=== PATIENT | female | born 2000 | race Caucasian/White ===

== ENCOUNTER → 2025-10-10 | Emergency (ER) | payer OTHER | END | disposition left against medical advice (07) | LOC: EMS 22:20 | DX: R45.6 Violent behavior (principal); Z53.21 Procedure and treatment not carried out due to patient leaving prior to being seen by health care provider ==

== ENCOUNTER 2025-10-26 09:19 | Emergency (ER) | payer OTHER ==
[~2025-10-26] VITALS: Ht 162.6 cm; Wt 100.0 kg
[2025-10-26 09:41] VITALS: BP 122/74; PULSE 96; RESP 18; TEMP 98.4; O2SAT 96
[2025-10-26] MEDS: PERTUSS(ACELL),DIPH,TET/PF 0.5 ML SYRINGE [ADULT] IM. ONE (09:45)
[2025-10-26] MEDS: OLANZapine 5 MG RAPDIS TABLET PO ONE (10:12)
== END 2025-10-26 10:20 | disposition home or self-care (01) ==
LOC: EMS 09:19
DX: F20.9 Schizophrenia, unspecified (principal); Z02.89 Encounter for other administrative examinations
CPT/HCPCS: 90715; 99283